=== PATIENT | female | born 1935 | race Caucasian/White ===

== ENCOUNTER 2021-08-05 12:19 | Day surgery (SDC) | payer MEDICARE ==
[~2021-08-05] VITALS: Ht 165.1 cm; Wt 56.9 kg
[2021-08-05] VITALS (8 sets, daily range): BP systolic 142–199; BP diastolic 61–84; PULSE 57–80; TEMP 97.9
[~2021-08-05 12:19] MED LIST: COUMADIN; COUMADIN5 MG PO; DIABETIC; INSULIN; LANTUS100 U/ML SQ; METFORMIN500 MG PO; NO HOME MEDICATIONS
[2021-08-05] MEDS ORDERED: ELIQUIS 5MG PO (13:25)
[2021-08-05] MEDS ORDERED: GLUCOTROL XL10 MG PO (13:26)
[2021-08-05] MEDS ORDERED: ZESTRIL 20MG TA20 MG PO (13:26)
[2021-08-05] MEDS ORDERED: LIPITOR20 MG PO (13:26)
[2021-08-05 13:27] LABS: HEMOGLOBIN 10.9 g/dl (12.5-16.0); MEAN CELL VOLUME 82 fl (80.0-100.0); MEAN CORPUSCULAR HEMOGLOBIN 27 pg (27-31); MEAN CORPUSCULAR HGB CONC 33 g/dl (33.0-37.0); MEAN PLATELET VOLUME 11.1 fl (7.4-10.4); PLATELET COUNT 164 K/mm3 (130-400); RED BLOOD COUNT 4.04 M/mm3 (4.10-5.30); REDCELL DISTRIBUTION WIDTH-CV 13.5 % (11.5-14.5)
[2021-08-05] MEDS ORDERED: TYLENOL 500MG500 MG PO (13:27)
[2021-08-05 13:32] LABS: INR 1.1 (0.8-3.0); PROTHROMBIN TIME 12.2 SECONDS (9.7-12.8)
[2021-08-05 13:34] LABS: HEMATOCRIT 33.2 % (37.0-47.0)
[2021-08-05 13:35] LABS: PARTIAL THROMBOPLASTIN TIME 31.7 SECONDS (26.0-37.0)
[2021-08-05 13:40] LABS: CALCIUM 9.5 mg/dL (8.4-10.2); CREATININE, serum 1.79 mg/dL (0.57-1.11)
--- NOTE | 2021-08-05 14:43 | NUR ---
PATIENT ALERT AND ORIENTED, NO REPORTS OF PAIN OR DISCOMFORT. FAMILY IN WAITING ROOM. SEE MERGE FOR CATH DETAILS INCLUDING HEMODYNAMIC MONITORING WELL MEDICATION ADMINISTRATION
--- NOTE | 2021-08-05 16:33 | NUR ---
Pt's groin site continues to look good, soft with clean dry and intact dressing. Pt has used bedpan x 2 with no issues, voiding large amt clear urine with each void. Pt now resting with hob up 30degrees and is eating dinner. sister in law at , keeping pt company. NSR on monitor with occasional PACs. call light in reach. tm
--- NOTE | 2021-08-05 17:55 | NUR ---
Pt did well during post procedure monitoring. Now, pt has been up and ambulatory to bathroom in express, with steady gait. Patient and I have reviewed dc/fu instructions and pt denies any questions at time of departure. Pt escorted to exit via wheelchair.
== END 2021-08-05 18:39 | disposition home or self-care (01) ==
LOC: COL.CAR 12:19
PROVIDERS: Internal Medicine Interventional Cardiology
DX: I25.10 Atherosclerotic heart disease of native coronary artery without angina pectoris (principal); I35.0 Nonrheumatic aortic (valve) stenosis; I65.29 Occlusion and stenosis of unspecified carotid artery; R00.2 Palpitations; R06.02 Shortness of breath
CPT/HCPCS: C1760; C1769; C1894; J1644; Q9967